=== PATIENT | male | born 1970 | race Caucasian/White ===

== ENCOUNTER 2019-01-23 15:02 | Inpatient (IN) | payer MEDICARE ==
--- NOTE | 2019-01-23 19:30 | ED ---
General Adult HPI <Kenan Canales - Last Filed: 01/23/19 21:04> - General Source: patient Mode of arrival: ambulatory Limitations: no limitations <Daniel De Los Santos - Last Filed: 01/23/19 21:21> - General Chief complaint: Weakness Stated complaint: weakness, jake, abdominal pain, Hx Kidney transplan Time Seen by Provider: 01/23/19 18:43 - History of Present Illness Initial comments: Patient is a 48-year-old male with a history of kidney transplant was presenting to emergency Department with a chief complaint of weakness and fatigue. Patient reports his symptoms started approximately a week ago with a gradual onset. Patient reports fatigue with exertion that is alleviated at rest. Patient repor ts taking immunosuppressive medication due to his kidney transplant. Patient is concerned for elevated creatinine levels. She reports he previously experienced similar symptoms and he was in kidney failure. Patient reports a history of anemia of chronic in disease. Patient reports lightheadedness but no dizziness. Patient denies headache, blurry vision, chest pain but does report shortness of breath and increased sputum production. Patient is a smoker for approximately 20 years. Patient reports a history of legionnaire's disease. Patient denies abdominal pain, back pain, diarrhea, nausea or vomiting. Patient denies a history of asthma. (Daniel De Los Santos) - Related Data Home Medications Medication Instructions Recorded Confirmed Calcitriol [Rocaltrol] 0.25 mcg PO DAILY 01/23/19 01/23/19 Metoprolol Tartrate [Lopressor] 50 mg PO BID 01/23/19 01/23/19 Mycophenolate Mofetil [Cellcept] 1,000 mg PO BID 01/23/19 01/23/19 Tacrolimus [Prograf] 1 mg PO BID 01/23/19 01/23/19 predniSONE 5 mg PO DAILY 01/23/19 01/23/19 Allergies Allergy/AdvReac Type Severity Reaction Status Date / Time No Known Allergies Allergy Verified 01/23/19 19:01 Review of Systems ROS Other: All systems not noted in ROS Statement are negative. <Kenan Canales - Last Filed: 01/23/19 21:04> ROS Other: All systems not noted in ROS Statement are negative. <Daniel De Los Santos - Last Filed: 01/23/19 21:21> ROS Statement: Those systems with pertinent positive or pertinent negative responses have been documented in the HPI. Past Medical History Past Medical History: Renal Disease Additional Past Medical History / Comment(s): renal transplant x 2 History of Any Multi-Drug Resistant Organisms: None Reported Past Surgical History: Orthopedic Surgery Additional Past Surgical History / Comment(s): vascular Past Psychological History: No Psychological Hx Reported Smoking Status: Current every day smoker Past Alcohol Use History: Occasional Past Drug Use History: Heroin, Marijuana, Opiates <Daniel De Los Santos - Last Filed: 01/23/19 21:21> General Exam Limitations: no limitations General appearance: alert, in no apparent distress Head exam: Present: atraumatic, normocephalic, normal inspection Eye exam: Present: normal appearance, PERRL, EOMI. Absent: conjunctival injection Pupils: Present: normal accommodation ENT exam: Present: normal exam, normal oropharynx (Uvula midline. No tonsillar enlargement or exudates.), mucous membranes moist, TM's normal bilaterally, normal external ear exam Neck exam: Present: normal inspection, full ROM. Absent: lymphadenopathy Respiratory exam: Present: wheezes (Right lung). Absent: chest wall tenderness Cardiovascular Exam: Present: regular rate, normal rhythm, systolic murmur GI/Abdominal exam: Present: soft, normal bowel sounds. Absent: tenderness, guarding, rebound Extremities exam: Present: normal inspection, full ROM Back exam: Present: normal inspection, full ROM Neurological exam: Present: alert, oriented X3 Psychiatric exam: Present: normal affect, normal mood Skin exam: Present: warm, intact, normal color <Daniel De Los Santos - Last Filed: 01/23/19 21:21> Course <Kenan Canalse - Last Filed: 01/23/19 21:04> Vital Signs 01/23/19 01/23/19 01/23/19 15:21 19:19 20:29 Temperature 97.7 F Pulse Rate 89 93 Respiratory 18 20 18 Rate Blood Pressure 143/76 140/86 O2 Sat by Pulse 98 99 Oximetry - Reevaluation(s) Reevaluation #1: 01/23/19 21:04 PA supervision: I personally did evaluate this case and did discuss the findings with the provider, Daniel. Case is also discussed with Dr. Garnica. Patient is present with complaints of weakness for 1 week he is found to be in atrial fibrillation which is January and. He is a history kidney transplant with evidence of renal insufficiency no old labs are available no old EKGs. (Kenan Canales) EKG Findings - EKG Comments: EKG Findings:: A. fib, hyperacute T waves in V2 V3 and V4, T-wave inversion. Ventricular rate 99, RI interval unknown, QRS duration 90, QT/QTC 342/438, P-R-T interval * 19 -61 <Daniel De Los Santos - Last Filed: 01/23/19 21:21> Medical Decision Making - Lab Data Result diagrams: 01/23/19 19:38 01/23/19 19:38 <Kenan Canales - Last Filed: 01/23/19 21:04> - Lab Data Result diagrams: 01/23/19 19:38 01/23/19 19:38 <Daniel DeL os Santos - Last Filed: 01/23/19 21:21> - Medical Decision Making Patient is a 48-year-old male presenting to emergency Department with chief complaint of generalized weakness. EKG is indicative of A. fib, ST and T changes. CBC is indicative of leukocytosis of 15,000 with mild anemia 11.1. The anemia is at his baseline. No previous EKGs could be found. Patient states his last EKG was performed and refer to chart but it could not be recovered. Patient denies any history of cardiovascular related disease. Patient has a GFR of 38. No previous laboratory results are available for comparison. Chest x- ray is indicative of cardiomegaly but no heart failure. Pleural and pulmonary scarring with dense calcified plaques at the right lung base. This can be correlated to the physical examination findings of wheezing on the right lung. Mild costovertebral angle blunting is noted on the right side. Patient is also admitted compromised due to medication secondary to kidney transplant. Patient will be placed on low intensity heparin secondary to EKG findings. Case discussed with Dr. Canales Admitting physician is Dr Cortez. Cardiology and nephrology consult. (Daniel De Los Santos) - Lab Data Lab Results 01/23/19 01/23/19 01/23/19 Range/Units 19:38 19:38 19:38 WBC 15.0 H (3.8-10.6) k/uL RBC 4.05 L (4.30-5.90) m/uL Hgb 11.1 L (13.0-17.5) gm/dL Hct 36.0 L (39.0-53.0) % MCV 88.8 (80.0-100.0) fL MCH 27.3 (25.0-35.0) pg MCHC 30.8 L (31.0-37.0) g/dL RDW 14.9 (11.5-15.5) % Plt Count 342 (150-450) k/uL Neutrophils % 83 % Lymphocytes % 10 % Monocytes % 4 % Eosinophils % 1 % Basophils % 0 % Neutrophils # 12.5 H (1.3-7.7) k/uL Lymphocytes # 1.5 (1.0-4.8) k/uL Monocytes # 0.6 (0-1.0) k/uL Eosinophils # 0.2 (0-0.7) k/uL Basophils # 0.1 (0-0.2) k/uL Hypochromasia Moderate PT (9.0-12.0) sec INR (<1.2) APTT (22.0-30.0) sec Sodium 142 (137-145) mmol/L Potassium 5.0 (3.5-5.1) mmol/L Chloride 108 H (98-107) mmol/L Carbon Dioxide 23 (22-30) mmol/L Anion Gap 11 mmol/L BUN 46 H (9-20) mg/dL Creatinine 2.31 H (0.66-1.25) mg/dL Est GFR (CKD-EPI)AfAm 38 (>60 ml/min/1.73 sqM) Est GFR (CKD-EPI)NonAf 33 (>60 ml/min/1.73 sqM) Glucose 105 H (74-99) mg/dL Plasma Lactic Acid Zack 0.9 (0.7-2.0) mmol/L Calcium 10.4 H (8.4-10.2) mg/dL Total Bilirubin 0.4 (0.2-1.3) mg/dL AST 16 L (17-59) U/L ALT 20 L (21-72) U/L Alkaline Phosphatase 125 (38-126) U/L Troponin I (0.000-0.034) ng/mL Total Protein 7.9 (6.3-8.2) g/dL Albumin 3.8 (3.5-5.0) g/dL Urine Color Urine Appearance (Clear) Urine pH (5.0-8.0) Ur Specific [place] (1.001-1.035) Urine Protein (Negative) Urine Glucose (UA) (Negative) Urine Ketones (Negative) Urine Blood (Negative) Urine Nitrite (Negative) Urine Bilirubin (Negative) Urine Urobilinogen (<2.0) mg/dL Ur Leukocyte Esterase (Negative) Urine RBC (0-5) /hpf Urine WBC (0-5) /hpf Urine Mucus (None) /hpf 01/23/19 01/23/19 01/23/19 Range/Units 19:38 19:38 20:30 WBC (3.8-10.6) k/uL RBC (4.30-5.90) m/uL Hgb (13.0-17.5) gm/dL Hct (39.0-53.0) % MCV (80.0-100.0) fL MCH (25.0-35.0) pg MCHC (31.0-37.0) g/dL RDW (11.5-15.5) % Plt Count (150-450) k/uL Neutrophils % % Lymphocytes % % Monocytes % % Eosinophils % % Basophils % % Neutrophils # (1.3-7.7) k/uL Lymphocytes # (1.0-4.8) k/uL Monocytes # (0-1.0) k/uL Eosinophils # (0-0.7) k/uL Basophils # (0-0.2) k/uL Hypochromasia PT 11.0 (9.0-12.0) sec INR 1.0 (<1.2) APTT 27.8 (22.0-30.0) sec Sodium (137-145) mmol/L Potassium (3.5-5.1) mmol/L Chloride (98-107) mmol/L Carbon Dioxide (22-30) mmol/L Anion Gap mmol/L BUN (9-20) mg/dL Creatinine (0.66-1.25) mg/dL Est GFR (CKD-EPI)AfAm (>60 ml/min/1.73 sqM) Est GFR (CKD-EPI)NonAf (>60 ml/min/1.73 sqM) Glucose (74-99) mg/dL Plasma Lactic Acid Zack (0.7-2.0) mmol/L Calcium (8.4-10.2) mg/dL Total Bilirubin (0.2-1.3) mg/dL AST (17-59) U/L ALT (21-72) U/L Alkaline Phosphatase (38-126) U/L Troponin I <0.012 (0.000-0.034) ng/mL Total Protein (6.3-8.2) g/dL Albumin (3.5-5.0) g/dL Urine Color Yellow Urine Appearance Clear (Clear) Urine pH 7.0 (5.0-8.0) Ur Specific [place] 1.015 (1.001-1.035) Urine Protein 1+ H (Negative) Urine Glucose (UA) Trace H (Negative) Urine Ketones Negative (Negative) Urine Blood Trace H (Negative) Urine Nitrite Negative (Negative) Urine Bilirubin Negative (Negative) Urine Urobilinogen <2.0 (<2.0) mg/dL Ur Leukocyte Esterase Small H (Negative) Urine RBC 14 H (0-5) /hpf Urine WBC 26 H (0-5) /hpf Urine Mucus Rare H (None) /hpf Disposition <Kenan Canales - Last Filed: 01/23/19 21:04> Is patient prescribed a controlled substance at d/c from ED?: No Time of Disposition: 21:20 <Daniel De Los Santos - Last Filed: 01/23/19 21:21> Clinical Impression: Weakness Disposition: ADMITTED IP TO THIS HOSP Condition: Stable Instructions (If sedation given, give patient instructions): Weakness (ED) Additional Instructions: Patient will be admitted. Referrals: Terrell Simon MD [Primary Care Provider] - 1-2 days
[2019-01-23 19:58] LABS: Albumin 3.8 g/dL (3.5-5.0); Calcium 10.4 mg/dL (8.4-10.2); Partial Thromboplastin Time 27.8 sec (22.0-30.0); Total Bilirubin 0.4 mg/dL (0.2-1.3); Total Protein 7.9 g/dL (6.3-8.2)
--- NOTE | 2019-01-23 19:58 | XR ---
EXAMINATION TYPE: XR chest 2V DATE OF EXAM: 01/23/2019 COMPARISON: NONE HISTORY: Fatigue TECHNIQUE: Frontal and lateral views of the chest are obtained. FINDINGS: Heart is enlarged. There is some calcified pleural plaque at the right lung base. There ar e no hilar masses. There are chest leads. Bony thorax is intact. There is some coarse interstitial de nsity in the lower lobes. There is slight blunting right costophrenic angle. IMPRESSION: Cardiomegaly. No heart failure. Pleural and pulmonary scarring with dense calcified plaq ue at the right lung base.
[2019-01-23 20:05] LABS: Basophils # (A) 0.1 k/uL (0-0.2); Basophils % (A) 0 %; Eosinophils # (A) 0.2 k/uL (0-0.7); Eosinophils % (A) 1 %; HGB 11.1 gm/dL (13.0-17.5); Hypochromasia Moderate; Lymphocytes # (A) 1.5 k/uL (1.0-4.8); Lymphocytes % (A) 10 %; MCH 27.3 pg (25.0-35.0); MCHC 30.8 g/dL (31.0-37.0); MCV 88.8 fL (80.0-100.0); Monocytes # (A) 0.6 k/uL (0-1.0); Monocytes % (A) 4 %; Neutrophils # (A) 12.5 k/uL (1.3-7.7); Neutrophils % (A) 83 %; Platelet Count 342 k/uL (150-450); RBC 4.05 m/uL (4.30-5.90); RDW 14.9 % (11.5-15.5)
[2019-01-23] MEDS ORDERED: SODIUM CHLORIDE 0.9% 1,000 ML IV STA (20:14)
[2019-01-23 20:45] LABS: Appearance,Urine Clear (Clear); Bilirubin,Urine Negative (Negative); Blood,Urine Trace (Negative); Color,Urine Yellow; Glucose,Urine (UA) Trace (Negative); Ketones,Urine Negative (Negative); Leukocyte Esterase,Urine Small (Negative); Mucus,Urine Rare /hpf; Nitrite,Urine Negative (Negative); Protein,Urine 1+ (Negative); RBC,Urine 14 /hpf (0-5); Specific Gravity,Urine 1.015 (1.001-1.035); Urobilinogen,Urine <2.0 mg/dL (<2.0); WBC,Urine 26 /hpf (0-5)
[2019-01-23] MEDS ORDERED: NALOXONE 0.4 MG/ML 1 ML VIAL IV PRN (21:10)
[2019-01-23] MEDS ORDERED: HEPARIN SODIUM,PORCINE 5,000 UNIT/ML 1 ML VIAL IV PRN (21:14)
[2019-01-23] MEDS ORDERED: HEPARIN SODIUM,PORCINE 5,000 UNIT/ML 1 ML VIAL IV ONE (21:14)
[2019-01-23] MEDS: HEPARIN SOD,PORK IN 0.45% NACL 25,000 UNIT in 0.45% NACL 1 250ML.BAG IV SCH (21:23)
--- NOTE | 2019-01-23 23:05 | P.HPIM ---
History of Present Illness H&P Date: 01/23/19 Chief Complaint: Generalized fatigue 48-year-old male with history of renal transplant on immunosuppressive Patient coming to the hospital today with one-week history of progressive fatigue and weakness feeling light headed and underperforming. He reports that regular activities that he is to tolerate all of a sudden he wasn't able to tolerate this is associated with some shortness of breath upon exertion denies any chest pain. He denies any fevers but reports chills and upper respiratory infection like symptoms with some sore throat and coughing. Patient also repo rts some muscle aches he denies any sick contacts or recent traveling. He reports compliance with his medications of antirejection however he ran out of prednisone for the past couple days. He denies any changes in his urine. He reports a lot of muscle aches. He decided come to the hospital today due to feeling very sick and lightheaded and symptoms getting worse. He denies any GI bleeding denies being on any blood thinners he reports taking Lopressor for history of hypertension and being on immunosuppressive pressors for renal transplant. He does not know why he got renal failure and first place despite all the workup that was done. Patient otherwise denies any chest pain or abdominal pain denies any changes in his urinary or bowel habits. In the ED he was found to have acute kidney injury patient claims that his baseline creatinine is 1 He was also found to have elevated white count and mild anemia he reports that he has chronic anemia. Denies any GI bleeding EKG showed A. fib symptom be new onset patient denies any history of A. fib. Review of Systems Pertinent positives as noted in HPI. All other systems were reviewed and are negative Past Medical History Past Medical History: Hypertension, Renal Disease Additional Past Medical History / Comment(s): renal transplant x 2 History of Any Multi-Drug Resistant Organisms: None Reported Past Surgical History: Orthopedic Surgery Additional Past Surgical History / Comment(s): vascular Past Psychological History: No Psychological Hx Reported Smoking Status: Current every day smoker Past Alcohol Use History: Occasional Past Drug Use History: Heroin, Marijuana, Opiates - Past Family History Family Family Medical History: No Reported History Medications and Allergies Home Medications Medication Instructions Recorded Confirmed Type Calcitriol [Rocaltrol] 0.25 mcg PO DAILY 01/23/19 01/23/19 History Metoprolol Tartrate [Lopressor] 50 mg PO BID 01/23/19 01/23/19 History Mycophenolate Mofetil [Cellcept] 1,000 mg PO BID 01/23/19 01/23/19 History Tacrolimus [Prograf] 1 mg PO BID 01/23/19 01/23/19 History predniSONE 5 mg PO DAILY 01/23/19 01/23/19 History Allergies Allergy/AdvReac Type Severity Reaction Status Date / Time No Known Allergies Allergy Verified 01/23/19 19:01 Physical Exam Vitals: Vital Signs Temp Pulse Resp BP Pulse Ox 01/23/19 20:29 93 18 140/86 99 01/23/19 19:19 20 01/23/19 15:21 97.7 F 89 18 143/76 98 Intake and Output 01/23/19 01/23/19 01/23/19 06:59 14:59 22:59 Other: Weight 74.843 kg Constitutional: No acute distress, patient is conversant and cooperative however he seems to be anxious Eyes: Anicteric sclerae, moist conjunctiva, no lid-lag Pupils equal round reactive to light ENMT: NC/AT Oropharynx clear, slight erythema of the throat no exudates Neck: Supple, FROM, no masses, or JVD No carotid bruits No thyromegaly Lungs: Good breath sounds throughout, right lower lung base with expiratory wheezes Clear to percussion Normal respiratory effort, no accessory muscle use Cardiovascular: Heart regular No murmurs, gallops, or rubs No peripheral edema Abdominal: Soft Nontender, no guarding, rebound or rigidity Abdomen moving with respiration Normoactive bowel sounds No hepatomegaly, No splenomegaly No palpable mass No abdominal wall hernia noted Skin: Normal temperature, tone, texture, turgor No induration No subcutaneous nodules No rash, lesions No ulcers Extremities: No digital cyanosis No clubbing Pedal pulses intact and symmetrical Radial pulses intact and symmetrical No calf tenderness Psychiatric: Alert and oriented to person, place and time Appropriate affect fair judgment Neuro Muscles Strength 5/5 in all 4 extremities Sensation to light touch grossly present throughout Cranial nerves II-XII grossly intact No focal sensory deficits Lymphatics: no palpable cervical or supraclavicular , or inguinal lymph nodes Results CBC & Chem 7: 01/23/19 19:38 01/23/19 19:38 Labs: Abnormal Lab Results - Last 24 Hours (Table) 01/23/19 01/23/19 01/23/19 Range/Units 19:38 19:38 20:30 WBC 15.0 H (3.8-10.6) k/uL RBC 4.05 L (4.30-5.90) m/uL Hgb 11.1 L (13.0-17.5) gm/dL Hct 36.0 L (39.0-53.0) % MCHC 30.8 L (31.0-37.0) g/dL Neutrophils # 12.5 H (1.3-7.7) k/uL Chloride 108 H (98-107) mmol/L BUN 46 H (9-20) mg/dL Creatinine 2.31 H (0.66-1.25) mg/dL Glucose 105 H (74-99) mg/dL Calcium 10.4 H (8.4-10.2) mg/dL AST 16 L (17-59) U/L ALT 20 L (21-72) U/L Urine Protein 1+ H (Negative) Urine Glucose (UA) Trace H (Negative) Urine Blood Trace H (Negative) Ur Leukocyte Esterase Small H (Negative) Urine RBC 14 H (0-5) /hpf Urine WBC 26 H (0-5) /hpf Urine Mucus Rare H (None) /hpf Assessment and Plan Assessment: 48 year old male with history of renal transplant on immunosuppressant , admitted as inpatient with anticipated length of stay >48 hours due to afib with RVR, SOREN , and dehydration. patient reporting generalized fatigue and muscle aches of one week duration , flu test pending Plan: new onset afib Acute allograft renal injury , rule out rejection vs prerenal ATN from dehydration and poor PO intake dehydration generalized body aches and fatigue , rule out flu History of hypertension on Lopressor anemia of chronic disease Leukocytosis, most likely secondary to prednisone, rule out flu or other infectious process Chest x-ray was negative, showing right lung base scarring, patient reports history of legionnaires plan patient started on heparin gtt, if heart rate persistently over 110 I will start patient on Cardizem Continue with Lopressor Check echocardiogram Check TSH Hold immunosuppressant wait for nephrology evaluation Continue with prednisone Follow-up renal function Monitor urine output Check flu A/B Check CPK IV fluid hydration DVT prophylaxis patient currently on heparin drip for A. fib Patient normally gets his care at [facility] no available records CODE STATUS: Full code Discussed with: Patient, ER, RN Anticipated discharge: 48-[address]: Pending clinical course A total of 60 minutes was spent on the care of this complex patient more than 50% of the time was spent in counseling and care coordination.
[2019-01-23] MEDS: SODIUM CHLORIDE 0.9% 1,000 ML IV SCH (23:07)
[2019-01-23] MEDS: ALPRAZolam 0.5 MG TAB PO PRN (23:09)
[2019-01-23] MEDS: METOPROLOL TARTRATE 50 MG TAB PO SCH (23:10)
[2019-01-24] MEDS ORDERED: HYDROcodone/APAP 5-325MG 1 EACH TAB PO STA (03:13)
[2019-01-24] MEDS: ALPRAZolam 0.5 MG TAB PO PRN ×3 (04:47→21:18)
[2019-01-24 07:29] LABS: Basophils # (A) 0.1 k/uL (0-0.2); Basophils % (A) 0 %; Eosinophils # (A) 0.2 k/uL (0-0.7); Eosinophils % (A) 1 %; HCT 33.5 % (39.0-53.0); HGB 10.6 gm/dL (13.0-17.5); Hypochromasia Slight; Lymphocytes # (A) 1.6 k/uL (1.0-4.8); Lymphocytes % (A) 11 %; MCH 28.2 pg (25.0-35.0); MCHC 31.8 g/dL (31.0-37.0); MCV 88.8 fL (80.0-100.0); Mean Platelet Volume 6.4; Monocytes # (A) 0.7 k/uL (0-1.0); Monocytes % (A) 5 %; Neutrophils # (A) 11.4 k/uL (1.3-7.7); Neutrophils % (A) 81 %; Platelet Count 295 k/uL (150-450); RBC 3.78 m/uL (4.30-5.90); RDW 14.6 % (11.5-15.5); WBC 14.2 k/uL (3.8-10.6)
[2019-01-24 08:04] LABS: Calcium 9.9 mg/dL (8.4-10.2); Potassium 4.8 mmol/L (3.5-5.1)
[2019-01-24] MEDS ORDERED: predniSONE 5 MG TAB PO SCH (09:00)
[2019-01-24] MEDS: METOPROLOL TARTRATE 50 MG TAB PO SCH ×3 (09:07→21:18)
[2019-01-24] MEDS: CALCITRIOL 0.25 MCG CAP PO SCH (09:07)
[2019-01-24] MEDS: SODIUM CHLORIDE 0.9% 1,000 ML IV SCH ×3 (09:07→23:49)
--- NOTE | 2019-01-24 10:26 | P.CRDCN ---
History of Present Illness Consult date: 01/24/19 Requesting physician: Yessica Cortez Consult reason: atrial fibrillation Chief complaint: Fever, chills, weakness and fatigue History of present illness: This is a 48-year-old gentleman with history of hypertension, history of kidney transplant, nicotine dependence, nondiabetic, no hyperlipidemia, who presented to the hospital with symptoms of fever, chills, productive cough of green sputum, and associated weakness. Patient states he's been dealing with these symptoms for approximate one week in duration. Chest x-ray on presentation here showed cardiomegaly, no heart failure, pleural and pulmonary scarring with dense calcified plaque at the right lung base. His EKG on prese ntation here showed atrial fibrillation with nonspecific ST-T wave changes noted. Blood pressure on arrival here 142/76 with a heart rate in the 80s, 98% on room air. White blood cell count 15 on admission, 14.2 this morning, hemoglobin 10.6, platelet count 295. Sodium 142, potassium 5.0, BUN 46, creatinine 2.3, sodium 139, potassium 4.8, BUN 35 and creatinine 1.8. Troponins negative 3, TSH 2.1. Influenza A and B-. At the time of my examination this morning, patient continues to have a productive cough, is very sweaty, states that he feels generally weak all over. Past Medical History Past Medical History: Hypertension, Renal Disease Additional Past Medical History / Comment(s): renal transplant x 2 History of Any Multi-Drug Resistant Organisms: None Reported Past Surgical History: Orthopedic Surgery Additional Past Surgical History / Comment(s): vascular Past Anesthesia/Blood Transfusion Reactions: No Reported Reaction Past Psychological History: No Psychological Hx Reported Smoking Status: Current every day smoker Past Alcohol Use History: Occasional Past Drug Use History: Heroin, Marijuana, Opiates - Past Family History Family Family Medical History: No Reported History Medications and Allergies Home Medications Medication Instructions Recorded Confirmed Type Calcitriol [Rocaltrol] 0.25 mcg PO DAILY 01/23/19 01/23/19 History Metoprolol Tartrate [Lopressor] 50 mg PO BID 01/23/19 01/23/19 History Mycophenolate Mofetil [Cellcept] 1,000 mg PO BID 01/23/19 01/23/19 History Tacrolimus [Prograf] 1 mg PO BID 01/23/19 01/23/19 History predniSONE 5 mg PO DAILY 01/23/19 01/23/19 History Allergies Allergy/AdvReac Type Severity Reaction Status Date / Time No Known Allergies Allergy Verified 01/23/19 19:01 Physical Exam Vitals: Vital Signs Temp Pulse Pulse Resp BP BP Pulse Ox 01/24/19 08:00 98.3 F 101 H 20 129/57 97 01/24/19 04:00 98.2 F 100 20 140/70 97 01/24/19 03:30 107 H 20 01/24/19 01:40 99 F 107 H 20 157/88 98 01/24/19 00:56 108 H 18 151/86 98 01/23/19 23:02 102 H 18 162/92 98 01/23/19 21:31 98 18 151/86 99 01/23/19 20:29 93 18 140/86 99 01/23/19 19:19 20 01/23/19 15:21 97.7 F 89 18 143/76 98 Intake and Output 01/23/19 01/24/19 01/24/19 22:59 06:59 14:59 Intake Total 63.316 240 Balance 63.316 240 Intake: Intake, IV Titration 63.316 Amount Heparin Sod,Pork in 0.45% 63.316 NaCl 25,000 unit In 0.45 % NaCl 1 250ml.bag @ 12 UNITS/KG/HR 8.981 mls/hr IV .Q24H [facility] Rx#: [id number] Oral 240 Other: Voiding Method Toilet Toilet Urinal Urinal Weight 74.843 kg 68.4 kg PHYSICAL EXAMINATION: GENERAL: 48-year-old gentleman in no acute distress at the time of my examination HEENT: Head is atraumatic, normocephalic. Pupils equal, round. Sclera anicteric. Conjunctiva are clear. Mucous membranes of the mouth are moist. Neck is supple. There is no elevated jugular venous pressure. No carotid bruit is heard. HEART EXAMINATION: Heart S1 and S2 irregularly irregular CHEST EXAMINATION: As reveal scattered coarse rhonchi and wheezing throughout ABDOMEN: Soft, nontender. Bowel sounds are heard. No organomegaly noted. EXTREMITIES: 2+ peripheral pulses with no evidence of peripheral edema and no calf tenderness noted. NEUROLOGIC patient is awake, alert and oriented 3 . . Results 01/24/19 07:13 01/24/19 07:13 Cardiac Enzymes 01/23/19 01/23/19 01/24/19 Range/Units 19:38 19:38 02:43 AST 16 L (17-59) U/L Troponin I <0.012 <0.012 (0.000-0.034) ng/mL 01/24/19 Range/Units 07:13 AST (17-59) U/L Troponin I <0.012 (0.000-0.034) ng/mL Coagulation 01/23/19 01/24/19 Range/Units 19:38 02:43 PT 11.0 (9.0-12.0) sec APTT 27.8 31.1 H (22.0-30.0) sec CBC 01/23/19 01/24/19 Range/Units 19:38 07:13 WBC 15.0 H 14.2 H (3.8-10.6) k/uL RBC 4.05 L 3.78 L (4.30-5.90) m/uL Hgb 11.1 L 10.6 L (13.0-17.5) gm/dL Hct 36.0 L 33.5 L (39.0-53.0) % Plt Count 342 295 (150-450) k/uL Comprehensive Metabolic Panel 01/23/19 01/24/19 Range/Units 19:38 07:13 Sodium 142 139 (137-145) mmol/L Potassium 5.0 4.8 (3.5-5.1) mmol/L Chloride 108 H 111 H (98-107) mmol/L Carbon Dioxide 23 18 L (22-30) mmol/L BUN 46 H 35 H (9-20) mg/dL Creatinine 2.31 H 1.81 H (0.66-1.25) mg/dL Glucose 105 H 112 H (74-99) mg/dL Calcium 10.4 H 9.9 (8.4-10.2) mg/dL AST 16 L (17-59) U/L ALT 20 L (21-72) U/L Alkaline Phosphatase 125 (38-126) U/L Total Protein 7.9 (6.3-8.2) g/dL Albumin 3.8 (3.5-5.0) g/dL Current Medications Generic Name Dose Route Start Last Admin Trade Name Freq PRN Reason Stop Dose Admin Alprazolam 0.5 mg 01/23/19 22:51 01/24/19 04:47 Xanax PO 0.5 mg TID PRN Administration Anxiety Calcitriol 0.25 mcg 01/24/19 09:00 01/24/19 09:07 Rocaltrol PO 0.25 mcg DAILY [facility] Administration Heparin Sodium (Porcine) 0 unit 01/23/19 21:14 01/24/19 04:29 Heparin IV 4,000 unit PER PROTOCOL PRN Administration Low PTT Protocol Heparin Sodium/Sodium Chloride 250 mls @ 8.981 mls/hr 01/23/19 21:15 01/24/19 04:26 25,000 unit/ Sodium Chloride IV 15 units/kg/hr .Q24H [facility] 11.226 mls/hr Titration Protocol 12 UNITS/KG/HR Sodium Chloride 1,000 mls @ 125 mls/hr 01/23/19 23:00 01/24/19 09:07 Saline 0.9% IV 125 mls/hr .Q8H [facility] Administration Metoprolol Tartrate 50 mg 01/23/19 23:00 01/24/19 09:07 Lopressor PO 50 mg BID C[facility]Y Administration Naloxone HCl 0.2 mg 01/23/19 21:10 Narcan IV Q2M PRN Opioid Reversal Prednisone 5 mg 01/24/19 09:00 01/24/19 09:07 PO 5 mg DAILY COERY Administration Intake and Output 01/23/19 01/24/19 01/24/19 22:59 06:59 14:59 Intake Total 63.316 240 Balance 63.316 240 Intake: Intake, IV Titration 63.316 Amount Heparin Sod,Pork in 0.45% 63.316 NaCl 25,000 unit In 0.45 % NaCl 1 250ml.bag @ 12 UNITS/KG/HR 8.981 mls/hr IV .Q24H [facility] Rx#: [id number] Oral 240 Other: Voiding Method Toilet Toilet Urinal Urinal Weight 74.843 kg 68.4 kg 01/24/19 07:13 01/24/19 07:13 EKG Interpretations (text) EKG shows atrial fibrillation with nonspecific ST-T wave changes noted in the inferior lateral leads. Assessment and Plan Plan: Assessment and plan #1 symptoms of fever, chills, productive cough, and weakness. Suggesting possible acute tracheobronchitis. #2 history of renal transplant #3 atrial fibrillation, appears to be of new onset. TSH normal #4 hypertension #5 nicotine dependence #6 acute on chronic renal failure #7 chronic anemia Plan We will obtain an echocardiogram with Doppler study. Increase metoprolol to 50 mg one tablet by mouth 3 times a day. We will also check into Eliquis coverage. Further recommendations to follow. DNP note has been reviewed, I agree with a documented findings and plan of care. Patient was seen and examined.
[2019-01-24] MEDS ORDERED: predniSONE 20 MG TAB PO STA (11:30)
--- NOTE | 2019-01-24 11:42 | P.PN ---
Subjective Progress Note Date: 01/24/19 Patient seen and examined follow-up, still in A. fib but ventricular rate is controlled in the mid 80s. The patient complained of headache frontotemporal, congestion and productive cough and reports to be feeling weak, Patient afebrile, influenza A and B were negative. No acute events overnight Objective - Vital Signs Vital signs: Vital Signs Temp 99.5 F 01/24/19 11:09 Pulse 87 01/24/19 11:09 Resp 18 01/24/19 11:09 BP 115/50 01/24/19 11:09 Pulse Ox 98 01/24/19 11:09 Intake & Output 01/23/19 01/24/19 01/24/19 18:59 06:59 18:59 Intake Total 63.316 240 Balance 63.316 240 Weight 74.843 kg 68.4 kg Intake: Intake, IV Titration 63.316 Amount Heparin Sod,Pork in 0.45% 63.316 NaCl 25,000 unit In 0.45 % NaCl 1 250ml.bag @ 12 UNITS/KG/HR 8.981 mls/hr IV .Q24H [facility] Rx#: [id number] Oral 240 Other: Voiding Method Toilet Toilet Urinal Urinal - Exam Constitutional: No acute distress, conversant, pleasant Eyes: Anicteric sclerae, moist conjunctiva, no lid-lag, PERRLA ENMT: NC/AT,Oropharynx clear, no erythema, exudates Neck:Supple, FROM, no masses, or JVD, No carotid bruits; No thyromegaly Lungs: Coarse sounding along with scattered wheezes and rhonchi throughout Cardiovascular: Heart regular in rate and rhythm, No murmurs, gallops, or rubs no peripheral edema Abdominal: Soft Nontender, nom distended, no guarding, no rebound or rigidity, Normoactive bowel sounds No hepatomegaly, No splenomegaly, No palpable mass No abdominal wall hernia noted Skin: Normal temperature, tone, texture, turgor, No induration No subcutaneous nodules, No rash, lesions, No ulcers Extremities:No digital cyanosis No clubbing, Pedal pulses intact and symmetrical Radial pulses intact and symmetrical Normal gait and station, No calf tenderness Psychiatric: Alert and oriented to person, place and time, Appropriate affect Intact judgement Neuro: Muscles Strength 5/5 in all 4 extremities, Sensation to light touch grossly present throughout, Cranial nerves II-XII grossly intact. No focal sensory deficits - Labs CBC & Chem 7: 01/24/19 07:13 01/24/19 07:13 Labs: Abnormal Lab Results - Last 24 Hours (Table) 01/23/19 01/23/19 01/23/19 Range/Units 19:38 19:38 20:30 WBC 15.0 H (3.8-10.6) k/uL RBC 4.05 L (4.30-5.90) m/uL Hgb 11.1 L (13.0-17.5) gm/dL Hct 36.0 L (39.0-53.0) % MCHC 30.8 L (31.0-37.0) g/dL Neutrophils # 12.5 H (1.3-7.7) k/uL APTT (22.0-30.0) sec Chloride 108 H (98-107) mmol/L Carbon Dioxide (22-30) mmol/L BUN 46 H (9-20) mg/dL Creatinine 2.31 H (0.66-1.25) mg/dL Glucose 105 H (74-99) mg/dL Calcium 10.4 H (8.4-10.2) mg/dL AST 16 L (17-59) U/L ALT 20 L (21-72) U/L Creatine Kinase (55-170) U/L Urine Protein 1+ H (Negative) Urine Glucose (UA) Trace H (Negative) Urine Blood Trace H (Negative) Ur Leukocyte Esterase Small H (Negative) Urine RBC 14 H (0-5) /hpf Urine WBC 26 H (0-5) /hpf Urine Mucus Rare H (None) /hpf 01/24/19 01/24/19 01/24/19 Range/Units 02:43 02:43 07:13 WBC 14.2 H (3.8-10.6) k/uL RBC 3.78 L (4.30-5.90) m/uL Hgb 10.6 L (13.0-17.5) gm/dL Hct 33.5 L (39.0-53.0) % MCHC (31.0-37.0) g/dL Neutrophils # 11.4 H (1.3-7.7) k/uL APTT 31.1 H (22.0-30.0) sec Chloride (98-107) mmol/L Carbon Dioxide (22-30) mmol/L BUN (9-20) mg/dL Creatinine (0.66-1.25) mg/dL Glucose (74-99) mg/dL Calcium (8.4-10.2) mg/dL AST (17-59) U/L ALT (21-72) U/L Creatine Kinase 21 L (55-170) U/L Urine Protein (Negative) Urine Glucose (UA) (Negative) Urine Blood (Negative) Ur Leukocyte Esterase (Negative) Urine RBC (0-5) /hpf Urine WBC (0-5) /hpf Urine Mucus (None) /hpf 01/24/19 Range/Units 07:13 WBC (3.8-10.6) k/uL RBC (4.30-5.90) m/uL Hgb (13.0-17.5) gm/dL Hct (39.0-53.0) % MCHC (31.0-37.0) g/dL Neutrophils # (1.3-7.7) k/uL APTT (22.0-30.0) sec Chloride 111 H (98-107) mmol/L Carbon Dioxide 18 L (22-30) mmol/L BUN 35 H (9-20) mg/dL Creatinine 1.81 H (0.66-1.25) mg/dL Glucose 112 H (74-99) mg/dL Calcium (8.4-10.2) mg/dL AST (17-59) U/L ALT (21-72) U/L Creatine Kinase (55-170) U/L Urine Protein (Negative) Urine Glucose (UA) (Negative) Urine Blood (Negative) Ur Leukocyte Esterase (Negative) Urine RBC (0-5) /hpf Urine WBC (0-5) /hpf Urine Mucus (None) /hpf Assessment and Plan (1) Acute bronchitis Narrative/Plan: * History of smoking and possible underlying COPD * Initiated on prednisone 40 mg by mouth daily, oral doxycycline and breathing treatments with Robitussin AC * Continue to monitor Current Visit: Yes Status: Acute Code(s): J20.9 - ACUTE BRONCHITIS, UNSPECIFIED SNOMED Code(s): 57025002 (2) New onset a-fib Narrative/Plan: * Ventricular rate is controlled TSH is normal * Echocardiogram pending * Continue metoprolol and heparin drip per protocol with plans to switch to DOAC Eliquis * Appreciate cardiology recommendations Current Visit: Yes Status: Acute Code(s): I48.91 - UNSPECIFIED ATRIAL FIBRILLATION SNOMED Code(s): 57368443 (3) History of renal transplant Narrative/Plan: * Patient restarted on CellCept Current Visit: Yes Status: Chronic Code(s): Z94.0 - KIDNEY TRANSPLANT STATUS SNOMED Code(s): 144151588 (4) Essential hypertension Narrative/Plan: * Blood pressure stable and controlled * Continue current regimen Current Visit: Yes Status: Acute Code(s): I10 - ESSENTIAL (PRIMARY) HYPERTENSION SNOMED Code(s): 82344847 (5) Acute kidney injury superimposed on chronic kidney disease Narrative/Plan: * Creatinine trending down from 2.3-1.8 * Continue IV fluids normal saline at 125 mL an hour * Follow up with renal recommendations Current Visit: Yes Status: Acute Code(s): N17.9 - ACUTE KIDNEY FAILURE, UNSPECIFIED; N18.9 - CHRONIC KIDNEY DISEASE, UNSPECIFIED SNOMED Code(s): 47307323 (6) Leukocytosis Narrative/Plan: * Infectious versus acute versus steroid-induced * Patient initiated on antibiotics for acute bronchitis we'll repeat chest x-ray tomorrow, urine culture and blood cultures ordered * We'll continue to monitor Current Visit: Yes Status: Acute Code(s): D72.829 - ELEVATED WHITE BLOOD CELL COUNT, UNSPECIFIED SNOMED Code(s): 543046401 Plan: * Continue current treatment plan * Appreciate recommendations from the consultants * We'll continue to monitor patient's clinical course * Anticipated discharge 2-3 days
[2019-01-24] MEDS: IPRATROPIUM-ALBUTEROL 3 ML NEB INHALATION SCH ×4 (11:45→23:36)
[2019-01-24] MEDS: guaiFENesin-Coden 100-10MG/5ML 10 ML CUP PO PRN ×2 (12:24→21:30)
--- NOTE | 2019-01-24 13:46 | ECHOF ---
Referral Reason:new afib MEASUREMENTS -------- HEIGHT: 180.3 cm WEIGHT: 68.0 kg BP: 140/70 RVIDd: 4.5 cm (< 3.3) IVSd: 1.3 cm (0.6 - 1.1) LVIDd: 5.7 cm (3.9 - 5.3) LVPWd: 1.5 cm (0.6 - 1.1) IVSs: 1.7 cm LVIDs: 3.5 cm LVPWs: 2.2 cm LAESV Index (A-L): 74.62 ml/m Ao Diam: 3.0 cm (2.0 - 3.7) AV Cusp: 2.2 cm (1.5 - 2.6) LA Diam: 4.2 cm (2.7 - 3.8) MV EXCURSION: 16.399 mm (> 18.000) MV EF SLOPE: 80 mm/s (70 - 150) EPSS: 0.7 cm AV maxP.33 mmHg AV meanP.96 mmHg RAP: 5.00 mmHg RVSP: 37.86 mmHg FINDINGS -------- Atrial fibrillation. This was a technically good study. The left ventricular size is normal. There is moderate concentric left ventricular hypertrophy. O verall left ventricular systolic function is normal with, an EF between 55 - 60 %. The right ventricle is severely enlarged. LA is severely dilated >40 ml/m2 The right atrium is moderately enlarged. Interatrial and interventricular septum intact. Peak/mean gradient across the Aortic Valve is 17.33mmHg / 8.96mmHg. Can't exclude possible Bicuspid Aov. The mitral valve is normal. The mitral valve leaflets are mildly thickened. Mild mitral annular c alcification present. [id number] mitral regurgitation is present. Mild tricuspid regurgitation present. There is mild pulmonary hypertension. The right ventricular systolic pressure, as measured by Doppler, is 37.86mmHg. There is no pulmonic regurgitation present. The aortic root size is normal. Normal inferior vena cava with normal inspiratory collapse consistent with estimated right atrial pre ssure of 5 mmHg. The pulmonary veins were not recorded. There is no pericardial effusion. CONCLUSIONS -------- 1. Atrial fibrillation. 2. This was a technically good study. 3. The left ventricular size is normal. 4. There is moderate concentric left ventricular hypertrophy. 5. Overall left ventricular systolic function is normal with, an EF between 55 - 60 %. 6. The right ventricle is severely enlarged. 7. LA is severely dilated >40 ml/m2 8. The right atrium is moderately enlarged. 9. Interatrial and interventricular septum intact. 10. Peak/mean gradient across the Aortic Valve is 17.33mmHg / 8.96mmHg. 11. Can't exclude possible Bicuspid Aov. 12. The mitral valve is normal. 13. The mitral valve leaflets are mildly thickened. 14. Mild mitral annular calcification present. 15. [id number] mitral regurgitation is present. 16. Mild tricuspid regurgitation present. 17. There is mild pulmonary hypertension. 18. The right ventricular systolic pressure, as measured by Doppler, is 37.86mmHg. 19. There is no pulmonic regurgitation present. 20. The aortic root size is normal. 21. Normal inferior vena cava with normal inspiratory collapse consistent with estimated right atrial pressure of 5 mmHg. 22. The pulmonary veins were not recorded. 23. There is no pericardial effusion. CASTING SORTER: Shalonda Jennings RDCS
[2019-01-24] MEDS: ACETAMINOPHEN TAB 325 MG TAB PO PRN ×2 (15:48→21:18)
--- NOTE | 2019-01-24 18:15 | CONS ---
CONSULTATION REASON FOR CONSULT: Renal failure. HISTORY OF PRESENT ILLNESS: The patient is a 48-year-old male with history of end-stage renal disease etiology not known. The patient had an initial renal transplant in 1996 at [facility]. He subsequently had a 2nd transplant in 2011, which was a donor transplant at [facility]. His baseline creatinine is around 1 mg/dL. The patient was admitted to the hospital with complaints of increased weakness and cough. He also had low-grade fever at home. He denied any urinary symptoms. The patient normally follows regularly with his transplant relocation counselor out of [place]. The patient's serum creatinine was 2.3 on initial admission. He is currently maintained on IV fluids. Creatinine is down to 1.8 now. A chest x-ray shows dense calcified plaque in the right lung base with evidence of cardiomegaly. Patient was also noticed to be in atrial fibrillation which is of new onset and cardiology has been consulted. PAST MEDICAL HISTORY: Hypertension, end-stage renal disease, etiology unclear, status post renal transplant x2 with latest transplant in 2000 at [facility], which was a donor. The patient follows at [facility]. PAST SURGICAL HISTORY: Kidney transplant x2. SOCIAL HISTORY: Patient is an everyday smoker and he does have a prior history of use of marijuana, heroin, and opiates. MEDICATIONS: Prior to admission included Rocaltrol, Lopressor, CellCept, Prograf, prednisone. ALLERGIES: None. EXAMINATION: Patient is currently comfortable. He is not in any acute distress. Blood pressure is 115/50, heart rate 87 per minute. He is afebrile. Examination of the heart S1, S2. Examination of the lungs, bilateral breath sounds are heard. Abdomen is soft, nontender. Examination of the lower extremities shows no evidence of edema. FI[employer] SALES [employer]OCIATE exam grossly intact. LABS: Show a sodium of 139, potassium 4.8, chloride 111, CO2 is 18, BUN 35, serum creatinine 1.8. TSH was 2.1. UA shows 1+ protein, ketones negative, trace blood. WBCs 26, hemoglobin 10.6, white cell count 14.2. Chest x-ray as mentioned. Echocardiogram done this morning shows ejection fraction 55% to 60% with moderate concentric LVH. ASSESSMENT: 1. 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 Renal function is improving. I will continue with IV fluids. We can resume immunosuppressive medications as patient is hemodynamically stable. Continue with the current dose of prednisone which is appropriately increased. 2. Chronic kidney disease mineral bone disorder, maintained on calcitriol. 3. Atrial fibrillation with controlled ventricular response, being followed by Cardiology, maintained on Lopressor. 4. Possible pneumonia maintained on antibiotics. We will repeat chest x-ray post hydration. 5. Metabolic acidosis, non gap secondary to renal failure. PLAN: May resume Prograf and CellCept, check tacrolimus level. Maintain patient on a higher dose of prednisone given the underlying stress from current admission and repeat labs in a.m. and continue to avoid nephrotoxic agents. Maintain patient on empiric antibiotics. Continue the Rocaltrol. Thank you for this consultation. We will continue to follow the patient with you during his hospitalization. JESUS / ASHELYN: [id number] /
[2019-01-24 18:23] LABS: Glucose,Whole Blood 117 mg/dL (75-99)
[2019-01-24] MEDS: DOXYCYCLINE 100 MG CAP PO SCH (21:19)
[2019-01-24] MEDS: TACROLIMUS 1 MG CAP PO SCH (21:19)
[2019-01-24] MEDS: MYCOPHENOLATE MOFETIL 500 MG TAB PO SCH (21:19)
[2019-01-24] MEDS: HEPARIN SOD,PORK IN 0.45% NACL 25,000 UNIT in 0.45% NACL 1 250ML.BAG IV SCH (21:25)
[2019-01-25] MEDS: IPRATROPIUM-ALBUTEROL 3 ML NEB INHALATION SCH ×5 (06:03→20:06)
[2019-01-25] MEDS: SODIUM CHLORIDE 0.9% 1,000 ML IV SCH (06:07)
[2019-01-25 06:57] LABS: Basophils % (A) 0 %; Eosinophils % (A) 0 %; HCT 36.9 % (39.0-53.0); HGB 11.2 gm/dL (13.0-17.5); Hypochromasia Moderate; Lymphocytes # (A) 1.1 k/uL (1.0-4.8); Lymphocytes % (A) 9 %; MCH 27.4 pg (25.0-35.0); MCHC 30.2 g/dL (31.0-37.0); MCV 90.8 fL (80.0-100.0); Mean Platelet Volume 6.9; Monocytes # (A) 0.7 k/uL (0-1.0); Monocytes % (A) 5 %; Neutrophils % (A) 85 %; Platelet Count 313 k/uL (150-450); RBC 4.07 m/uL (4.30-5.90); RDW 14.6 % (11.5-15.5)
--- NOTE | 2019-01-25 08:39 | XR ---
EXAMINATION TYPE: XR chest 2V DATE OF EXAM: 01/25/2019 COMPARISON: 01/23/2019 INDICATION: Acute bronchitis TECHNIQUE: Frontal and lateral views of the chest are obtained. FINDINGS: The heart size is normal. The pulmonary vasculature is normal. Mild increased central lung markings are present bilaterally can be compatible with acute bronchitis. There is calcification along the right diaphragm and blunting the right costophrenic angle. Hyperinf lation with increased retrosternal airspace is present.. IMPRESSION: 1. Mild acute bronchitis could be considered within the differential. 2. Prior asbestos exposure. 3. COPD
[2019-01-25] MEDS: HEPARIN SOD,PORK IN 0.45% NACL 25,000 UNIT in 0.45% NACL 1 250ML.BAG IV SCH (08:46)
[2019-01-25] MEDS: CALCITRIOL 0.25 MCG CAP PO SCH (08:47)
[2019-01-25] MEDS: ALPRAZolam 0.5 MG TAB PO PRN ×3 (08:47→19:50)
[2019-01-25] MEDS: METOPROLOL TARTRATE 50 MG TAB PO SCH ×3 (08:47→19:44)
[2019-01-25] MEDS: guaiFENesin-Coden 100-10MG/5ML 10 ML CUP PO PRN ×2 (08:48→19:44)
[2019-01-25] MEDS: TACROLIMUS 1 MG CAP PO SCH ×2 (08:49→19:44)
[2019-01-25] MEDS: DOXYCYCLINE 100 MG CAP PO SCH ×2 (08:49→19:44)
[2019-01-25] MEDS: MYCOPHENOLATE MOFETIL 500 MG TAB PO SCH ×2 (08:49→19:44)
[2019-01-25 08:58] VITALS: RESP 18
[2019-01-25] MEDS ORDERED: predniSONE 20 MG TAB PO SCH (09:00)
[2019-01-25 11:10] LABS: Calcium 10.6 mg/dL (8.4-10.2)
[2019-01-25] MEDS: APIXABAN 5 MG TAB PO SCH ×2 (11:51→19:44)
[2019-01-25] MEDS: ACETAMINOPHEN TAB 325 MG TAB PO PRN (11:52)
--- NOTE | 2019-01-25 14:53 | P.PN ---
Subjective Progress Note Date: 01/25/19 This is a 48-year-old gentleman with history of hypertension, history of kidney transplant, nicotine dependence, nondiabetic, no hyperlipidemia, who presented to the hospital with symptoms of fever, chills, productive cough of green sputum, and associated weakness. Patient states he's been dealing with these symptoms for approximate one week in duration. Chest x-ray on presentation here showed cardiomegaly, no heart failure, pleural and pulmonary scarring with dense calcified plaque at the right lung base. His EKG on presentation here showed atrial fibrillation with nonspecific ST-T wave changes noted. Blood pressure on arrival here 142/76 with a heart rate in the 80s, 98% on room air. White blood cell count 15 on admission, 14.2 this morning, hemoglobin 10.6, platelet count 295. Sodium 142, potassium 5.0, BUN 46, creatinine 2.3, sodium 139, potassium 4.8, BUN 35 and creatinine 1.8. Troponins negative 3, TSH 2.1. Influenza A and B-. At the time of my examination this morning, patient continues to have a productive cough, is very sweaty, states that he feels generally weak all over. 01/25/2019 Patient was seen and examined this morning, overall feeling quite a bit better. Continues to have significant wheezing but much improved from admission. He also continues to be in atrial fibrillation although his heart rate today is under adequate control. Ejection fraction by echo was normal, moderate MR, possible bicuspid aortic valve. IV heparin has been discontinued and patient has been initiated on Eliquis for stroke prevention. He's been directed to establish himself with a vegetable grower in the area where his hot header operator and primary care doctor are. Objective - Vital Signs Vital signs: Vital Signs Temp 98.8 F 01/25/19 11:55 Pulse 93 01/25/19 11:55 Resp 18 01/25/19 11:55 BP 125/65 01/25/19 11:55 Pulse Ox 95 01/25/19 11:55 Intake & Output 01/24/19 01/25/19 01/25/19 18:59 06:59 18:59 Intake Total 6983.005 8140.686 704.95 Balance 2162.491 0895.686 704.95 Weight 69.2 kg Intake: IV 1000 Sodium Chloride 0.9% 1, 1000 000 ml @ 125 mls/hr IV . Q8H [facility] Rx#:[id number] Intake, IV Titration 440.517 7618.686 124.95 Amount Heparin Sod,Pork in 0.45% 172.436 67.686 124.95 NaCl 25,000 unit In 0.45 % NaCl 1 250ml.bag @ 12 UNITS/KG/HR 8.981 mls/hr IV .Q24H [facility] Rx#: [id number] Sodium Chloride 0.9% 1, 1000 000 ml @ 125 mls/hr IV . Q8H [facility] Rx#:[id number] Oral 480 350 580 Other: Voiding Method Toilet Toilet Toilet Urinal Urinal Urinal # Voids 2 - Exam PHYSICAL EXAMINATION: GENERAL: 48-year-old gentleman in no acute distress at the time of my examination HEENT: Head is atraumatic, normocephalic. Pupils equal, round. Sclera anicteric. Conjunctiva are clear. Mucous membranes of the mouth are moist. Neck is supple. There is no elevated jugular venous pressure. No carotid bruit is heard. HEART EXAMINATION: Heart S1 and S2 irregularly irregular CHEST EXAMINATION: As reveal scattered coarse rhonchi and wheezing throughout ABDOMEN: Soft, nontender. Bowel sounds are heard. No organomegaly noted. EXTREMITIES: 2+ peripheral pulses with no evidence of peripheral edema and no calf tenderness noted. NEUROLOGIC patient is awake, alert and oriented 3 . - Labs CBC & Chem 7: 01/25/19 06:10 01/25/19 06:10 Labs: Abnormal Lab Results - Last 24 Hours (Table) 01/24/19 01/24/19 01/24/19 Range/Units 07:13 17:39 18:07 WBC (3.8-10.6) k/uL RBC (4.30-5.90) m/uL Hgb (13.0-17.5) gm/dL Hct (39.0-53.0) % MCHC (31.0-37.0) g/dL Neutrophils # (1.3-7.7) k/uL APTT 39.9 H (22.0-30.0) sec Chloride (98-107) mmol/L Carbon Dioxide (22-30) mmol/L BUN (9-20) mg/dL Creatinine (0.66-1.25) mg/dL Glucose (74-99) mg/dL POC Glucose (mg/dL) 117 H (75-99) mg/dL Calcium (8.4-10.2) mg/dL Tacrolimus 2.6 L (5.0-20.0) ng/mL 01/25/19 01/25/19 01/25/19 Range/Units 00:14 06:10 06:10 WBC 13.0 H (3.8-10.6) k/uL RBC 4.07 L (4.30-5.90) m/uL Hgb 11.2 L (13.0-17.5) gm/dL Hct 36.9 L (39.0-53.0) % MCHC 30.2 L (31.0-37.0) g/dL Neutrophils # 11.0 H (1.3-7.7) k/uL APTT 49.2 H (22.0-30.0) sec Chloride 114 H (98-107) mmol/L Carbon Dioxide 16 L (22-30) mmol/L BUN 36 H (9-20) mg/dL Creatinine 1.58 H (0.66-1.25) mg/dL Glucose 108 H (74-99) mg/dL POC Glucose (mg/dL) (75-99) mg/dL Calcium 10.6 H (8.4-10.2) mg/dL Tacrolimus (5.0-20.0) ng/mL Microbiology - Last 24 Hours (Table) 01/24/19 12:22 Blood Culture - Preliminary Blood No Growth after 24 hours 01/24/19 11:59 Blood Culture - Preliminary Blood No Growth after 24 hours 01/23/19 20:30 Urine Culture - Preliminary Urine,Clean Catch Assessment and Plan Plan: Assessment and plan #1 symptoms of fever, chills, productive cough, and weakness. Suggesting pos sible acute tracheobronchitis. #2 history of renal transplant #3 atrial fibrillation, appears to be of new onset. TSH normal #4 hypertension #5 nicotine dependence #6 acute on chronic renal failure #7 chronic anemia Plan Echocardiogram with Doppler study revealed a normal left ventricular systolic function with moderate MR and possible bicuspid aortic valve. IV heparin has been discontinued and patient has been initiated on Eliquis. From our perspective, patient has been instructed to follow-up with a vegetable grower in the same area where his hot header operator and primary care doctors are. DNP note has been reviewed, I agree with a documented findings and plan of care. Patient was seen and examined.
[2019-01-25] MEDS ORDERED: GABAPENTIN 100 MG CAP PO SCH (16:00)
[2019-01-25 16:11] VITALS: BP 136/92; TEMP 98.2
--- NOTE | 2019-01-25 18:04 | PN ---
PROGRESS NOTE Patient is seen for followup for acute kidney injury. His renal function has been improving. Patient is maintained on IV fluids. He is also on empiric antibiotics. So far, all cultures are negative. On examination this morning, blood pressure was 125/65, heart rate of 93 per minute. He was afebrile. EXAMINATION OF THE HEART: S1 and S2. EXAMINATION OF LUNGS: Bilateral breath sounds are heard. ABDOMEN: Soft, non-tender. Examination of lower extremities shows no evidence of edema. BUDGET CONTROLLER exam is grossly intact. Labs show sodium 143, potassium 5.0, chloride 114, CO2 16, BUN 36, serum creatinine 1.58. Calcium was 10.6, hemoglobin 11.2 g/dL. ASSESSMENT: 1. Acute kidney injury/acute allograft nephropathy, currently improving. Continue with IV fluids. No nephrotoxic agents on board. 2. Hypercalcemia in a patient maintained on Rocaltrol. I will hold off on the calcitriol for now. We will also check a PTH level. 3. Status post -donor transplant 2011 at [facility], being followed by a transplant control tower operator out of [place] with baseline creatinine about 1, per patient. 4. Possible pneumonia, maintained on antibiotics in the form of Vibramycin. 5. Atrial fibrillation, new onset, with normal TSH, being followed by Cardiology. Rate is controlled. The patient has been started on Eliquis. PLAN: Hold off on the calcitriol for now. Wean down prednisone as outpatient. The patient needs to follow up as outpatient with his transplant control tower operator. MMODL / IJN: [id number] /
[2019-01-25 20:19] VITALS: PULSE 95
[2019-01-26] MEDS ORDERED: predniSONE 20 MG TAB PO SCH (09:00)
--- NOTE | 2019-01-27 05:09 | CDI ---
Documentation Clarification Form Date: 01/27/2019 4:42:00 AM From: Lety Lackey Phone: If you have a question about this query, please contact Noelle Kimbrough Driller'S Assistant at [phone] between 8am and 5pm. Admit Date: 01/25/2019 3:17:00 PM Patient Name: Antoni Sanchez Visit Number: [id number] Discharge Date: 01/25/2019 8:19:00 PM ATTENTION: The Clinical Documentation Specialists (CDI) and [facility] Coding Staff appreciate your assistance in clarifying documentation. Please respond to the clarification below the line at the bottom and electronically sign. The CDI & [facility] Coding staff will review the response and follow-up if needed. Please note: Queries are made part of the Legal Health Record. If you have any questions, please contact the author of this message via ITS. Dr. Wilmer Rachel Conflicting documentation has been found in the medical record: Patient presents with soem SOB upon exertion, CP, chills, sore throat and coughing. H and P rule out flu. 01/25 PN documents possible pneumonia another 01/25 PN documents possible tracheobronchitis. Patient maintained on Vibramycin. Please clarify did patient have pneumonia, influenza or acute trachobronchitis. History/Risk Factors: kidney transplant x2, new onset atrial fib, Acute/chronic renal failure Clinical Indicators: coughing sore throat, SOB Treatment: Vibramycin Acute tracheobroncitis please refer to the note MTDD
--- NOTE | 2019-01-31 13:53 | P.DS ---
Providers Date of admission: 01/25/19 15:17 Expected date of discharge: 01/25/19 Attending physician: Yessica Cortez MD Consults: 01/23/19 21:10 Consult Physician Stat Consulting Provider: Diamond Rangel Consult Reason/Comments: New-onset A. fib with ST changes. Generalized weakness Do you want consulting provider notified?: Yes Consult Physician Stat Consulting Provider: Danyell Carter Consult Reason/Comments: Renal insufficiency Do you want consulting provider notified?: Yes Primary care physician: Terrell Simon - Discharge Diagnosis(es) (1) Acute bronchitis Status: Acute (2) New onset a-fib Status: Acute (3) History of renal transplant Status: Chronic (4) Essential hypertension Status: Acute (5) Acute kidney injury superimposed on chronic kidney disease Status: Acute (6) Leukocytosis Status: Acute Hospital Course: The patient is a 48-year-old male the past focal history of essential hypertension, history of kidney transplant on immunosuppressive therapy with Cellcept and ongoing nicotine dependence that presented with generalized fatigue and weakness and acute bronchitis like symptoms for a week and was admitted for new onset A. fib, workup troponins were negative TSH was 2.1. Chest x-ray showed cardiomegaly and no heart failure only pleural and pulmonary scarring with diligence calcified plaque at the right lung base, patient was started on heparin drip and transitioned to DOAC with eliquis and the patient's metoprolol was increased to 50 mg PO TID. An echocardiogram performed indicated a preserved LVEF of 55-60% with a severely dilated left atrium & mild to moderate MR. The patient was started on oral steroids with prednisone and placed on doxycycline for acute bronchitis, influenza A and B were negative. The patient was continued on CellCept patient did present with initial mild acute kidney injury superimposed on chronic kidney disease IV fluids with good urine output noted and returned to baseline creatinine, the patient was noted to have ongoing leukocytosis attributed to steroids and was subsequently discharged home in stable condition after remaining afebrile throughout his hospitalization. This discharge process took approximately 35 minutes Focused exam cardiovascular: Irregularly irregular. No murmurs or gallops Respiratory: Diminished in the bases, clear to auscultation bilaterally Patient Condition at Discharge: Stable Plan - Discharge Summary New Discharge Prescriptions: New Apixaban [Eliquis] 5 mg PO BID #60 tab Metoprolol Tartrate [Lopressor] 50 mg PO TID #90 tab predniSONE 40 mg PO DAILY #5 tab Doxycycline [Vibramycin] 100 mg PO BID #14 cap Continue predniSONE 5 mg PO DAILY Tacrolimus [Prograf] 1 mg PO BID Mycophenolate Mofetil [Cellcept] 1,000 mg PO BID Calcitriol [Rocaltrol] 0.25 mcg PO DAILY Discontinued Metoprolol Tartrate [Lopressor] 50 mg PO BID Discharge Medication List Calcitriol [Rocaltrol] 0.25 mcg PO DAILY 01/23/19 [History] Mycophenolate Mofetil [Cellcept] 1,000 mg PO BID 01/23/19 [History] Tacrolimus [Prograf] 1 mg PO BID 01/23/19 [History] predniSONE 5 mg PO DAILY 01/23/19 [History] Apixaban [Eliquis] 5 mg PO BID #60 tab 01/25/19 [Rx] Doxycycline [Vibramycin] 100 mg PO BID #14 cap 01/25/19 [Rx] Metoprolol Tartrate [Lopressor] 50 mg PO TID #90 tab 01/25/19 [Rx] predniSONE 40 mg PO DAILY #5 tab 01/25/19 [Rx] Follow up Appointment(s)/Referral(s): Diamond Rangel MD [STAFF PHYSICIAN] - 02/01/19 2:15 pm (Wednesday) Terrell Simon MD [Primary Care Provider] - 1-2 days (Office is closed. Please call to shedule appointment) Patient Instructions/Handouts: A-fib (Atrial Fibrillation) (DC), Weakness (ED), Safe Use of Anticoagulants (DC) Activity/Diet/Wound Care/Special Instructions: pts 30 day copay for eliquis is $3.80, script filled in [facility] pharmacy Discharge Disposition: STILL PT- FOR INTERIM BILLING
== END 2019-01-25 20:19 | DRG 683 ==
LOC: EC 15:02 → 3SCARD 21:04 → OBSVTOIN 01-25 15:17
PROVIDERS: ADMIT Internal Medicine; ATTEND Internal Medicine
DX: N17.9 Acute kidney failure, unspecified (principal); T86.19 Other complication of kidney transplant; E87.2 Acidosis; I12.0 Hypertensive chronic kidney disease with stage 5 chronic kidney disease or end stage renal disease; Y83.0 Surgical operation with transplant of whole organ as the cause of abnormal reaction of the patient, or of later complication, without mention of misadventure at the time of the procedure; D63.8 Anemia in other chronic diseases classified elsewhere; E83.52 Hypercalcemia; E86.0 Dehydration; F17.210 Nicotine dependence, cigarettes, uncomplicated; I48.91 Unspecified atrial fibrillation; J20.9 Acute bronchitis, unspecified; M89.9 Disorder of bone, unspecified; N18.6 End stage renal disease; T38.0X5A Adverse effect of glucocorticoids and synthetic analogues, initial encounter; Z79.899 Other long term (current) drug therapy; D72.829 Elevated white blood cell count, unspecified; Z79.52 Long term (current) use of systemic steroids; F11.11 Opioid abuse, in remission
CPT/HCPCS: 36415; 71046; 80048; 80053; 80197; 81001; 82550; 83605; 84443; 84484; 85025; 85610; 85730; 87040; 87086; 87502; 93005; 93306; 94640; 96361; 96365; 96366; 96376; 99285